=== PATIENT | female | born 1960 | race Caucasian/White ===

== ENCOUNTER → 2019-06-20 | Outpatient (CLI) | payer BC ==
--- NOTE | 2019-06-21 16:31 | PCVCIMAG ---
APPROVED REPORT Study performed: 06/20/2019 08:20:06 EXAM: Comprehensive 2D, Doppler, and color-flow Echocardiogram Patient Location: Echo lab Room #: 2Status: routine BSA: 1.45 HR: 85 bpm Rhythm: NSR Other Information Study Quality: Good Risk Factors: Cardiac Risk Factors: HTN, Hyperlipidemia Indications Murmur Lupus 2D Dimensions IVSd: 8.63 (7-11mm)LVOT Diam: 20.00 (18-24mm) LVDd: 38.17 mm PWd: 8.81 (7-11mm)Ascending Ao: 28.41 (22-36mm) LVDs: 23.67 (25-40mm) Left Atrium: 25.43 (27-40mm) Aortic Root: 30.07 mm LV Single Plane 4CH: 68.32 % LV Single Plane 2CH: 66.64 % Biplane EF: 66.9 % Volumes Left Atrial Volume (Systole) Single Plane 4CH: 22.20 mLSingle Plane 2CH: 18.70 mL LA ESV Index: 17.00 mL/m2 Aortic Valve AoV Peak Mason.: 1.34 m/s AO Peak Gr.: 7.13 mmHgLVOT Max P.50 mmHg LVOT Max V: 1.06 m/s HOWARD Vmax: 2.47 cm2 Mitral Valve E/A Ratio: 0.8 MV Decel. Time: 204.33 ms MV E Max Mason.: 0.66 m/s MV A Mason.: 0.78 m/s IVRT: 69.20 ms TDI E/Lateral E': 9.43E/Medial E': 11.00 Medial E' Mason.: 0.06 m/s Lateral E' Mason.: 0.07 m/s Pulmonary Valve PV Peak Mason.: 1.10 m/sPV Peak Gr.: 4.84 mmHg Pulmonary Vein P Vein S: 0.55 m/sP Vein A: 0.34 m/s P Vein D: 0.39 m/sP Vein A Dur.: 100.3 msec P Vein S/D Ratio: 1.41 Tricuspid Valve RAP Estimate: 7.00 mmHg Left Ventricle The left ventricle is normal size. There is normal LV segmental wall motion. There is normal left ventricular wall thickness. Left ventricular systolic function is normal. The left ventricular ejection fraction is within the normal range. LVEF is 65-70%. Mild diastolic dysfunction is present (impaired relaxation pattern). Right Ventricle The right ventricle is normal size. The right ventricular systolic function is normal. Atria The left atrium size is normal. The right atrium size is normal. Aortic Valve The aortic valve is normal in structure. No aortic regurgitation is present. There is no aortic valvular stenosis. Mitral Valve The mitral valve is normal in structure. There is no mitral valve regurgitation noted. No evidence of mitral valve stenosis. Tricuspid Valve The tricuspid valve is normal in structure. There is no tricuspid valve regurgitation noted. Pulmonic Valve The pulmonary valve is normal in structure. There is no pulmonic valvular regurgitation. Great Vessels The aortic root is normal in size. The ascending aorta is normal in size. IVC is normal in size and collapses >50% with inspiration. Pericardium There is no pericardial effusion. <Conclusion> The left ventricle is normal size. LVEF is 65-70%. The aortic valve is normal in structure. The mitral valve is normal in structure. The tricuspid valve is normal in structure. There is no pericardial effusion.
== END | disposition home or self-care (01) ==
LOC: PCVCIMAG 08:22
PROVIDERS: ATTEND Internal Medicine
DX: R01.1 Cardiac murmur, unspecified (principal); I10 Essential (primary) hypertension; F17.200 Nicotine dependence, unspecified, uncomplicated; Z90.710 Acquired absence of both cervix and uterus; Z72.89 Other problems related to lifestyle
CPT/HCPCS: 93306